=== PATIENT | male | born 1965 | race American Indian/Alaskan Native ===

== ENCOUNTER 2017-05-07 23:29 | Emergency (ER) | payer MEDICAID ==
--- NOTE | 2017-05-08 01:04 | C.PDOC ---
History Of Present Illness Patient gave a history of feeling weak. hx of coughing, no definite fever. No nausea or vomiting. No diarrhea. Chief Complaint (Nursing): Medical Clearance History Per: Patient History/Exam Limitations: no limitations Onset/Duration Of Symptoms: Days Current Symptoms Are (Timing): Still Present Severity: Mild Pain Scale Rating Of: 1 Recent travel outside of the [place]: No Additional History Per: Patient Past Medical History Vital Signs: Last Vital Signs Temp 99.5 F 05/07/17 23:39 Pulse 118 H 05/07/17 23:39 Resp 20 05/07/17 23:39 BP 118/70 05/07/17 23:39 Pulse Ox 95 05/08/17 02:44 - Medical History PMH: Asthma, COPD Denies: Chronic Kidney Disease Surgical History: No Surg Hx Family History: States: Unknown Family Hx - Social History Hx Alcohol Use: Yes Hx Substance Use: Yes - Immunization History Hx Tetanus Toxoid Vaccination: No Hx Influenza Vaccination: Yes Hx Pneumococcal Vaccination: No Review Of Systems Constitutional: Negative for: Fever, Chills, Sweats Cardiovascular: Negative for: Chest Pain, Palpitations, Orthopnea Respiratory: Positive for: Cough. Negative for: Shortness of Breath, Hemoptysis Gastrointestinal: Negative for: Nausea, Vomiting, Diarrhea Skin: Negative for: Rash Neurological: Negative for: Weakness, Numbness, Incoordination, Change in Speech Physical Exam - Physical Exam Appears: Non-toxic Skin: Normal Color Head: Atraumatic Eye(s): bilateral: Normal Inspection, PERRL, EOMI Nose: Normal Tongue: Normal Appearing Lips: Normal Appearing Throat: Normal Neck: Normal Cardiovascular: Rhythm Regular, No Rhythm Irregular, No Edema, No Murmur, No JVD Respiratory: Normal Breath Sounds, No Rales, No Rhonchi, No Wheezing Gastrointestinal/Abdominal: Normal Exam Back: Normal Inspection Extremity: Normal ROM ED Course And Treatment - Laboratory Results Result Diagrams: 05/08/17 01:37 05/08/17 01:35 ECG: Interpreted By Me, Viewed By Me ECG Rhythm: Sinus Tachycardia ECG Interpretation: Abnormal Interpretation Of ECG: NSR, Q wave in V! V, no acute ST-T changes O2 Sat by Pulse Oximetry: 95 Disposition Counseled Patient/Family Regarding: Diagnosis - Disposition Referrals: [facility] [Outside] Disposition: HOME/ ROUTINE Disposition Time: 02:35 Condition: STABLE Additional Instructions: cn\ontinue albuterol inhaler Prescriptions: Azithromycin 1 tab PO DAILY #5 tab Instructions: Upper Respiratory Infection (ED) Forms: [facility] [facility] (Kyrgyz) - POA Present On Arrival: None - Clinical Impression Clinical Impression: Upper respiratory infection
[2017-05-08 01:40] LABS: BASO % 0.3 % (0.0-2.0); EOS % 0.1 % (0.0-4.0); HEMATOCRIT 40.8 % (35.0-51.0); LYMPH # 0.6 K/uL (1.0-4.3); LYMPH % 7.9 % (20.0-40.0); MEAN CELL VOLUME 94.9 fL (80.0-94.0); MEAN CORPUSCULAR HEMOGLOBIN 31.2 pg (27.0-31.0); MEAN CORPUSCULAR HGB CONC 32.9 g/dL (33.0-37.0); MEAN PLATELET VOLUME 8.3 fL (7.2-11.7); MONO # 0.6 K/uL (0.0-0.8); MONO % 7.8 % (0.0-10.0); PLATELET COUNT 128 K/uL (130-400); RED CELL DISTRIBUTION WIDTH 13.2 % (11.5-14.5); WHITE BLOOD COUNT 7.8 K/uL (4.8-10.8)
[2017-05-08 02:06] LABS: NEUTROPHIL 83 % (50-75); TOTAL CELLS COUNTED 100
[2017-05-08 02:17] LABS: ALKALINE PHOSPHATASE 61 U/L (38-126); ALT/SGPT 51 U/L (21-72); AST/SGOT 54 U/L (17-59); BILIRUBIN,TOTAL 0.8 mg/dL (0.2-1.3); BLOOD UREA NITROGEN 15 mg/dL (9-20); CALCIUM 8.6 mg/dl (8.6-10.4); CARBON DIOXIDE 23 mmol/L (22-30); CHLORIDE 96 mmol/L (98-107); GFR AFRICAN-AMERICAN > 60; GLUCOSE,RANDOM 86 mg/dL (75-110); SODIUM 133 mmol/L (132-148); TOTAL PROTEIN 8.9 g/dL (6.3-8.3)
[2017-05-08 02:18] LABS: RBC URINE < 1 /hpf (0-3); URINE BILIRUBIN NEGATIVE (NEGATIVE); URINE BLOOD 2+ (NEGATIVE); URINE COLOR Yellow (YELLOW); URINE GLUCOSE (UA) NORMAL (Normal); URINE KETONE NEGATIVE (NEGATIVE); URINE LEUKOCYTE ESTERASE NEG Leu/uL (Negative); URINE PROTEIN NEGATIVE (NEGATIVE); URINE UROBILINOGEN NORMAL mg/dL (0.2-1.0); WBC URINE 1 /hpf (0-5)
[2017-05-08] MEDS ORDERED: Azithromycin 500mg/250ML NS 250 ML IV STA (02:45)
[2017-05-08 05:34] VITALS: BP 132/83; PULSE 85; RESP 16; TEMP 98; O2SAT 99
--- NOTE | 2017-05-08 11:21 | RAD ---
HISTORY: SOB COMPARISON: No prior. TECHNIQUE: Chest PA and lateral FINDINGS: LUNGS: Mild hyperinflation. Mild bibasilar atelectasis and or scarring. Developing lower lobe infiltrates could be excluded with followup radiographs. Questionable tiny granuloma left upper lung field overlying the left anterior 1st rib PLEURA: No significant pleural effusion identified. No pneumothorax apparent. CARDIOVASCULAR: Normal. OSSEOUS STRUCTURES: No significant abnormalities. VISUALIZED UPPER ABDOMEN: Normal. OTHER FINDINGS: None. IMPRESSION: Mild hyperinflation. Mild bibasilar atelectasis and or scarring. Developing lower lobe infiltrates could be excluded with followup radiographs. Questionable tiny granuloma left upper lung field overlying the left anterior 1st rib
== END 2017-05-08 05:34 | disposition home or self-care (01) ==
LOC: C.ER 23:29
DX: J06.9 Acute upper respiratory infection, unspecified (principal)